=== PATIENT | female | born 1985 | race Asian ===

== ENCOUNTER 2017-08-17 12:31 | Inpatient (IN) | payer MEDICAID ==
[2017-08-17] MEDS ORDERED: OXYTOCIN 30 UNITS/LR 500 ML IV (14:00)
[2017-08-17] MEDS ORDERED: CARBOPROST 250 MCG INJ IM (14:00)
[2017-08-17] MEDS ORDERED: MISOPROSTOL 200 MCG TAB PR (14:00)
[2017-08-17] MEDS ORDERED: METHYLERGONOVINE 0.2 MG INJ IM (14:00)
[2017-08-17 15:27] LABS: ADD MAN DIFF? NO
[2017-08-17 15:30] LABS: WHITE BLOOD COUNT 14.2 10^3/ul (4.8-10.8)
[2017-08-17 15:30] LABS: BASOPHILS % 0.1 % (0.0-2.0); EOSINOPHILS % 0.1 % (0.0-7.0); HEMATOCRIT 34.8 % (37.0-47.0); HEMOGLOBIN 11.7 g/dl (12.0-16.0); LYMPHOCYTES % 7.3 % (15.0-51.0); MEAN CORPUSCULAR HEMOGLOBIN 29.5 pg (29.0-33.0); MEAN CORPUSCULAR HGB CONC 33.6 g/dl (32.0-37.0); MEAN CORPUSCULAR VOLUME 87.7 fl (82.0-101.0); MEAN PLATELET VOLUME 11.2 fl (7.4-10.4); MONOCYTE # 0.5 10^3/ul (0.3-0.9); MONOCYTES % 3.7 % (0.0-11.0); NEUTROPHIL # 12.5 10^3/ul (1.6-7.5); NEUTROPHILS % 88.3 % (39.0-77.0); PLATELET COUNT 259 10^3/UL (140-415); RED BLOOD COUNT 3.97 10^6/ul (4.20-5.40); RED CELL DISTRIBUTION WIDTH 13.6 % (11.5-14.5)
[2017-08-17 15:46] LABS: INR 0.94; PARTIAL THROMBOPLASTIN TIME 26.3 Sec (25.0-35.0); PROTIME 12.7 Sec (11.9-14.9)
[2017-08-17 16:22] LABS: HEPATITIS B SURFACE ANTIGEN NEGATIVE (NEGATIVE)
[2017-08-17 16:32] LABS: HIV 1&2 ANTIBODY NEGATIVE (NEGATIVE)
[2017-08-17 19:08] LABS: RAPID PLASMA REAGIN NONREACTIVE (NR)
[2017-08-18 11:07] LABS: ADD MAN DIFF? NO
[2017-08-18 11:14] LABS: WHITE BLOOD COUNT 12.2 10^3/ul (4.8-10.8)
[2017-08-18 11:14] LABS: BASOPHILS % 0.2 % (0.0-2.0); EOSINOPHILS # 0.1 10^3/ul (0.0-0.5); EOSINOPHILS % 0.5 % (0.0-7.0); HEMATOCRIT 32.4 % (37.0-47.0); HEMOGLOBIN 10.7 g/dl (12.0-16.0); LYMPHOCYTES # 1.7 10^3/ul (0.8-2.9); MEAN CORPUSCULAR HEMOGLOBIN 29.2 pg (29.0-33.0); MEAN CORPUSCULAR VOLUME 88.5 fl (82.0-101.0); MEAN PLATELET VOLUME 10.9 fl (7.4-10.4); MONOCYTE # 0.7 10^3/ul (0.3-0.9); MONOCYTES % 5.5 % (0.0-11.0); NEUTROPHIL # 9.7 10^3/ul (1.6-7.5); NEUTROPHILS % 79.3 % (39.0-77.0); PLATELET COUNT 261 10^3/UL (140-415); RED BLOOD COUNT 3.66 10^6/ul (4.20-5.40); RED CELL DISTRIBUTION WIDTH 13.4 % (11.5-14.5)
[2017-08-18] MEDS: IBUPROFEN 600 MG TAB PO (12:41)
[2017-08-21 11:27] LABS: RUBELLA ANTIBODY - IGM <20.00 AU/mL
== END 2017-08-18 20:00 | disposition home or self-care (01) | DRG 776 ==
LOC: L-D 12:31 → PP1 15:46
DX: Z39.0 Encounter for care and examination of mother immediately after delivery (principal); O90.89 Other complications of the puerperium, not elsewhere classified; M79.662 Pain in left lower leg; M79.661 Pain in right lower leg
CPT/HCPCS: 85025; 85610; 85730; 86592; 86703; 86762; 86850; 86900; 86901; 87340; 93970